=== PATIENT | female | born 1950 | race American Indian/Alaskan Native ===

== ENCOUNTER 2016-12-07 06:46 | Day surgery (SDC) | payer MEDICARE ==
[2016-11-23 13:55] VITALS: BMI 36.6
[2016-12-07 07:23] LABS: BASO # 0.04 K/mm3 (0.0-2.0); BASO % 1.3 % (0.0-3.0); EOS # 0.1 (0.0-0.7); GRAN # 0.93 (1.4-6.5); HEMATOCRIT 38.3 % (36.0-48.0); LYMPH # 1.7 (1.2-3.4); LYMPH % 56.7 % (22.0-35.0); MEAN CELL VOLUME 90.5 fl (80.0-105.0); MEAN CORPUSCULAR HGB CONC 34.2 g/dl (31.0-37.0); MEAN PLATELET VOLUME 8.8 fl (7.0-11.0); MONO # 0.2 (0.1-0.6); RED CELL DISTRIBUTION WIDTH 14.1 % (11.5-14.5)
[2016-12-07] MEDS ORDERED: Lidocaine 2% Inj (20ml) ONE (07:23)
[2016-12-07] MEDS ORDERED: Midazolam 2 MG/2 ML VIAL ONE ×2 (07:24→09:08)
[2016-12-07] MEDS ORDERED: Iodixanol 320 MG/ML 200 ML BOTTLE IV ONE (07:25)
[2016-12-07 07:30] LABS: BLOOD UREA NITROGEN 12 mg/dL (7-21); CALCIUM 9.5 mg/dL (8.4-10.5); CARBON DIOXIDE 28 mmol/L (21-33); CHLORIDE 105 mmol/L (95-110); GFR AFRICAN-AMERICAN > 60; GLUCOSE,RANDOM 112 mg/dL (70-110); POTASSIUM 3.7 mmol/L (3.6-5.0); SODIUM 143 mmol/L (132-148)
[2016-12-07 07:32] VITALS: RESP 18
[2016-12-07 07:36] LABS: INR 1.04 (0.93-1.08); PARTIAL THROMBOPLASTIN TIME 35.6 Seconds (25.1-36.5)
[2016-12-07] MEDS ORDERED: Sodium Chloride 0.9% 1,000 ML IV SCH (09:45)
[2016-12-07 09:59] VITALS: TEMP 98.4
[2016-12-07 13:26] VITALS: PULSE 50
[2016-12-07 14:18] VITALS: O2SAT 95
[2016-12-07 16:11] VITALS: BP 149/71
--- NOTE | 2016-12-07 18:04 | CARDCATH ---
PROCEDURE DATE: 12/07/2016 HISTORY: The patient is a 66-year-old woman with multiple cardiac risk factors including hypertension and hypercholesterolemia who presents with chest pain. She underwent a stress test which showed anteroseptal perfusion defects. Because of this, cardiac catheterization was recommended. PROCEDURE: Left heart catheterization with coronary arteriography and left ventriculogram. I performed moderate sedation which included the presence of an independent trained observer that assisted in the monitoring the pt's level of consciousness and physiological status. After administration of versed and fentenyl, my intra service time was 15 minutes. The right femoral artery was cannulated with 6-Mosotho sheath. There were no complications. Findings on catheterization revealed a left ventricle that contracted normally. Estimated ejection fraction of 60%. Her coronary anatomy revealed a left main artery that was unremarkable. The LAD was a tortuous vessel and revealed a 50% stenosis in the midportion, whose length was approximately 20 mm. The diagonal vessels were free of significant disease. The circumflex artery and obtuse marginal branches were free of significant disease. The right coronary artery selectively cannulized and found to be a dominant vessel. The RCA was unremarkable. Angio-Seal was used to close the femoral artery site. The patient tolerated the procedure well. In summary, the procedure revealed single-vessel CAD with a lengthy mid LAD stenosis of 50%. LV function is normal. Given these findings, the patient should remain on aspirin indefinitely and undergo a strict cardiac risk reduction program which includes statin therapy. Alden Tejeda MD JHONATHAN
--- NOTE | 2016-12-07 22:09 | CARD ---
APPROVED REPORT EKG Measurement Heart [id number] PA [id number] <Conclusion> Sinus bradycardia Minimal voltage criteria for LVH, may be normal variant Nonspecific ST and T wave abnormality Prolonged QT Abnormal ECG
== END 2016-12-07 16:00 | disposition home or self-care (01) ==
LOC: CATH 06:46
PROVIDERS: ATTEND Internal Medicine Cardiovascular Disease
DX: I25.10 Atherosclerotic heart disease of native coronary artery without angina pectoris (principal); I10 Essential (primary) hypertension; E78.00 Pure hypercholesterolemia, unspecified
CPT/HCPCS: 36415; 80048; 85025; 85610; 85730; 86850; 86900; 93005; 93458; 99152; 99153; C1760; C1769; C2629; J1644; J2250; J3010; J7030; J7040

== ENCOUNTER 2017-10-08 06:04 | Day surgery (SDC) | payer MEDICARE ==
[2017-10-07 07:53] VITALS: BMI 31.1
[2017-10-08 06:42] LABS: BASO # 0.02 K/mm3 (0.0-2.0); BASO % 0.4 % (0.0-3.0); EOS # 0.1 (0.0-0.7); EOS % 2.1 % (1.5-5.0); GRAN # 2.1 (1.4-6.5); GRAN % 39.5 % (50.0-68.0); HEMOGLOBIN 12.4 g/dL (12.0-16.0); LYMPH # 2.8 (1.2-3.4); LYMPH % 52.9 % (22.0-35.0); MEAN CELL VOLUME 89.8 fl (80.0-105.0); MEAN CORPUSCULAR HEMOGLOBIN 30.8 pg (25.0-35.0); MEAN CORPUSCULAR HGB CONC 34.3 g/dl (31.0-37.0); MEAN PLATELET VOLUME 8.7 fl (7.0-11.0); MONO # 0.3 (0.1-0.6); MONO % 5.1 % (1.0-6.0); RBC 4.02 10^6/uL (3.5-6.1); RED CELL DISTRIBUTION WIDTH 13.3 % (11.5-14.5); WHITE BLOOD COUNT 5.3 10^3/ul (4.5-11.0)
[2017-10-08 06:57] LABS: CALCIUM 9.4 mg/dL (8.4-10.5)
[2017-10-08 06:59] LABS: INR 1.01; PARTIAL THROMBOPLASTIN TIME 29.8 Seconds (25.1-36.5); PROTHROMBIN TIME 11.6 SECONDS (9.4-12.5)
[2017-10-08] MEDS ORDERED: Phenylephrine 10 mg/ml Inj ONE (07:00)
[2017-10-08] MEDS ORDERED: Iodixanol 320 MG/ML 100 ML BOTTLE IV ONE (07:01)
[2017-10-08] MEDS ORDERED: Iodixanol 320 MG/ML 200 ML BOTTLE IV ONE (07:01)
[2017-10-08] MEDS ORDERED: Nitroglycerin 50mg in D5W 0 MG/0 ML BOTTLE IV ONE (07:01)
[2017-10-08] MEDS ORDERED: Iohexol 350mgl/ml 50 ML ONE (07:01)
[2017-10-08] MEDS ORDERED: Adenosine 90 mg/30mL IV ONE (07:22)
[2017-10-08] MEDS ORDERED: Midazolam 2 MG/2 ML VIAL ONE ×2 (07:53→07:58)
[2017-10-08] MEDS ORDERED: Sodium Chloride 0.9% 1,000 ML IV SCH (09:00)
[2017-10-08 09:09] VITALS: TEMP 97.9
--- NOTE | 2017-10-08 09:38 | CARDCATH ---
Copied To: Alden Tejeda MD Attending MD: Alden Tejeda MD PROCEDURE DATE: 10/08/2017 HISTORY: The patient is a 66-year-old woman with a history of hypertension and hypercholesterolemia with documented pulmonary hypertension as well as documented CAD in the past who presents with exertional shortness of breath. Her stress test was abnormal. Because of this, cardiac catheterization was recommended. PROCEDURES: Right and left heart catheterization with coronary arteriography, left ventriculogram, right heart pressure measurements as well as FFR were performed. COMPLICATIONS: None. The right femoral artery was cannulated with a 6-Uzbek sheath. The right femoral vein was cannulated with a 7-Uzbek sheath. I performed moderate sedation, which included the presence of an independent trained observer that assisted in monitoring the patient's level of consciousness and physiologic status. After administration of Versed and fentanyl, my intra service time was 30 minutes. The findings on catheterization included right heart pressures which revealed a right atrial mean pressure of 2 mmHg, the pulmonary pressures were 36/10 mmHg. The mean pulmonary artery pressure was 18 mmHg. Pulmonary capillary wedge pressure was within normal limits. There was no gradient across the aortic valve. Left ventriculogram as was visualized in the GREENE projection. In the GREENE projection, wall motion is normal. EF is approximately 60-65%. Her coronary anatomy revealed a right dominant circulation. The RCA was free of significant disease. The left main artery was unremarkable. The circumflex artery and obtuse marginal branches were free of significant disease. The LAD was a large vessel as well as being tortuous, there was a long 50% stenoses in the midportion. The patient was started on intravenous Angiomax on the fluoroscopic guide, the guiding catheter was placed in the ostium of the left main artery. An FFR wire was used to cross the lesion in the mid LAD. FFR was measured after adenosine infusion. The FFR was measured to be 0.92. The patient tolerated the procedure well. Angio-Seal was used to close the femoral artery site. The Mynx system was used to close the femoral vein site. In summary, the procedure revealed single-vessel CAD with a 50% stenosis in the mid LAD. FFR was measured to be 0.092. LV function is normal. ____ revealed minimal minimally elevated pulmonary pressures. Given these findings, the patient's cardiac status is stable. No intervention was necessary in the LAD lesion. The patient should be continued with a cardiac risk reduction program for her hypertension as well as for high cholesterol. Alden Tejeda MD
[2017-10-08 09:44] VITALS: RESP 18
--- NOTE | 2017-10-08 09:59 | CARD ---
APPROVED REPORT Date of service: 10/08/2017 EKG Measurement Heart [id number] CT 168P35 [id number] <Conclusion> Marked sinus bradycardia NSSTW changes LVH by voltage No change
[2017-10-08 12:56] VITALS: BP 112/59; PULSE 56; O2SAT 95
== END 2017-10-08 15:00 | disposition home or self-care (01) ==
LOC: CATH 06:04
PROVIDERS: ATTEND Internal Medicine Cardiovascular Disease
DX: I25.10 Atherosclerotic heart disease of native coronary artery without angina pectoris (principal); I10 Essential (primary) hypertension; I27.20 Pulmonary hypertension, unspecified; E78.00 Pure hypercholesterolemia, unspecified
CPT/HCPCS: 36415; 80048; 80061; 85025; 85610; 85730; 86850; 86900; 93005; 93460; 93571; 99152; C1760 ×2; C1769 ×2; C1887; C1894; C2629; J0153; J0583; J1644; J2250; J3010; J7030; Q9966; Q9967